=== PATIENT | female | born 1970 | race Caucasian/White ===

== ENCOUNTER → 2017-06-03 | Outpatient (CLI) | payer OTHER ==
--- NOTE | ~2017-06-03 | CT4 ---
[facility] A Service of [facility] & [facility] RADIOLOGY TEXT RESULTS PATIENT: NICOLE LEÓN [facility] 66 UNIT #: [id number] AGE: [address]: TIM MARQUEZ APRN SEX: F ORDER DR: [id number] [facility] [address] [place], [place] [address] [id number] O MR#: [id number] Acc #: [id number] NAME: NICOLE LEÓN : 1970 SEX: F STUDY DATE/TIME: 06/03/2017 8:37 UNIT: [facility] ROOM: STUDY DESCRIPTION: CT Abd and Pelv Wo Cont Attending Physician: Tim Marquez Aprn Referring Physician: Tim Marquez Aprn Ordering Physician: Tim Marquez Aprn Primary Care Physician: Cynthia Emery M.D. MEDICAL IMAGING REPORT This report is preliminary unless electronic signature is present EXAM CT abdomen and pelvis without contrast HISTORY Hematuria four days. Right flank pain for [address] of the abdomen and pelvis performed without administration of oral or intravenous contrast. This CT exam was performed with one or more of the following radiation dose reduction techniques: automatic exposure control, adjustment of mA and/or kV according to patient size, and iterative reconstruction. COMPARISON No comparisons. FINDINGS Lung bases clear. Inferior heart and pericardium unremarkable. Liver unremarkable. Status post cholecystectomy. No biliary ductal dilatation. Spleen, pancreas, adrenal glands unremarkable. The right kidney and ureter unremarkable in visualized extent. The distal right ureter difficult to visualize due to its decompressed state. No perinephric or periureteral inflammatory change to suggest recent stone passage. The left kidney and ureter are unremarkable as well in visualized extent. CT PELVIS: No inguinal adenopathy. Urinary bladder is relatively low in volume but the bladder wall is diffusely prominent. This may be the normal physiologic state for this patient. Given patient history, correlate with any clinical or laboratory indications of cystitis. No focal bladder wall mass lesion is suggested. The uterus and adnexal regions are unremarkable for a patient of this age. There is no free fluid in the pelvis. No pelvic or retroperitoneal adenopathy. Distal STS. 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 Appendix normal. Colon unremarkable. Atherosclerotic arterial calcifications. No aneurysm. Bony structures unremarkable. IMPRESSION 1. The urinary bladder is normal in volume. There appears to be mild generalized bladder wall thickening. No perivesicular inflammatory change. The appearance could be a reflection of the relatively low volume of the bladder but given patient history, correlate with any clinical or laboratory indications of cystitis. No focal bladder wall abnormality is suggested on these noncontrast enhanced images. 2. Kidneys and ureters are normal in appearance. There is no renal calculi or obstruction and no secondary signs of recent stone passage. 3. Uterus and adnexal regions normal for a patient of this age. 4. Appendix normal. 5. Status post cholecystectomy. 6. Atherosclerotic arterial calcifications. No indication of aortic aneurysm. Dictated by... Melchor St M.D. THIS IS AN ELECTRONICALLY VERIFIED REPORT Melchor St M.D. at 06/04/2017 4:47 PM Rinku TD: 06/03/2017 14:03 JOB #: [id number] MEDICAL IMAGING REPORT Page 1 of 1 COPY
== END | disposition home or self-care (01) ==
LOC: CCAT 08:08
DX: R31.9 Hematuria, unspecified (principal); I70.8 Atherosclerosis of other arteries; Z90.49 Acquired absence of other specified parts of digestive tract
CPT/HCPCS: 74176